=== PATIENT | female | born 1955 | race Caucasian/White ===

== ENCOUNTER 2018-11-26 09:23 | Outpatient (CLI) | payer MEDICAID | END 2018-11-26 23:59 | disposition home or self-care (01) | LOC: VAS 09:23 | PROVIDERS: ATTEND Surgery | DX: I70.293 Other atherosclerosis of native arteries of extremities, bilateral legs (principal); I10 Essential (primary) hypertension; E11.9 Type 2 diabetes mellitus without complications; F17.200 Nicotine dependence, unspecified, uncomplicated | CPT/HCPCS: 93922; 93925 ==